=== PATIENT | male | born 1970 | race Hispanic/Latino ===

== ENCOUNTER 2019-03-10 11:30 | Day surgery (SDC) | payer BC ==
[~2019-03-10 11:30] MED LIST: GENTAMICIN ONE; TOBRADEX ONE; VERSED ONE; XYLOCAINE 2%/ EPI 1:200,000 INFILTRATI ONE; XYLOCAINE MPF 1% INFILTRATI ONE
[2019-03-10] MEDS ORDERED: TETRACAINE 0.5% OD SCH (11:51)
[2019-03-10] MEDS: VIGAMOX OD SCH ×3 (12:30→12:40)
[2019-03-10] MEDS ORDERED: SUBLIMAZE ONE (13:12)
[2019-03-10] MEDS ORDERED: VERSED ONE (13:13)
[2019-03-10] MEDS ORDERED: XYLOCAINE MPF 1% INFILTRATI ONE (13:14)
[2019-03-10] MEDS ORDERED: XYLOCAINE 2%/ EPI 1:200,000 INFILTRATI ONE ×2 (13:21)
[2019-03-10] MEDS ORDERED: MIOSTAT OD ONE (13:23)
[2019-03-10] MEDS ORDERED: PRED FORTE 1% OD ONE (13:46)
--- NOTE | 2019-03-10 13:55 | Operative Report ---
Operative Report Operative Report: PATIENT NAME: DATE OF : DATE OF SURGERY: PREOPERATIVE DIAGNOSIS: Bullous keratopathy right eye POSTOPERATIVE DIAGNOSIS:same PROPOSED PROCEDURE: Endothelial keratoplasty keratoplasty, right eye ADDITIONAL PROCEDURE: Superficail keratectomy right eye OPERATIVE PROCEDURE: 1. Endothelial keratoplasty keratoplasty, right eye SURGEON: Sari Hein MD TREASURY REPRESENTATIVE SURGEON: none ANESTHESIA: Monitored anesthesia care in combination with topical and intraca meral anesthesia because of the established specific risk of reflux, arrhythmias, or anxiety attacks associated with ocular manipulation, as well as the difficulty of the assembler surgical garment to manage such potentially catastrophic events while simultaneously attempting to complete the surgical procedure and was deemed necessary for the patient's safety to have an anesthesiologist was present during the procedure whenever possible. The anesthesiologist was utilized to regulate the intravenous sedation of the patient so the patient was cooperative yet not asleep in order for the patient to successfully maintain fixation of the eye on the operating light of the microscope. PUBLICITY MANAGER: COMPLICATIONS: None ALLERGIES: codeine PREOPERATIVE NOTE: The patient is a [male] who has the diagnosis or diagnoses of Fuchs dystrophy. Examination of the posterior portion of the eyes by indirect ophthalmoscopy shows the optic nerve and retina to be normal. 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 Donor tissue will be used to replace the dysfunctional endothelium utilizing a penetrating technique into the anterior chamber. This complicated technique allows the patient to maintain structural integrity of the eye making it much more resistant to traumatic rupture than a standard keratoplasty. It also allows a larger than average surface area of transplanted endothelium which hopefully in the long run will allow for longer endothelial viability and success for the surgery. It also provides for faster visual recovery and less anisometropia than previous keratoplasty techniques. It is technically more difficult because of the complicated preparation of the donor tissue and insertion of the donor tissue into the anterior chamber with fixation of the tissue without direct suturing of the donor. This also provides an increased chance of dislocation of the donor tissue in the immediate postoperative period compared to standard keratoplasty techniques. This type of corneal transplant takes over twice as long as a standard corneal transplant. Moreover, the preparation and end of surgery are more time consuming for both the surgeon and staff: the blocking of the eye requires a longer setup time as noted, the procedure itself is more complex, and the patient needs to lay face up and flat in the recovery area for a specified period of time prior to discharge. Preoperatively, it was discussed with the patient that they could have either a standard corneal transplant or a variation of a penetrating keratoplasty where only the posterior layers of the cornea are transplanted. With this new technique, as with any corneal transplant, there is always the possibility that the surgery may need to be repeated; or, in this case, also repeated with a standard corneal transplant if the visual result is not satisfactory. However, some of the advantages of this current technique are much more rapid visual recovery and a tectonically stronger eye after surgery. PROGNOSIS: guarded because of previous trabeculectomy INDICATIONS FOR SURGERY: The patient is undergoing surgery with the hope of eliminating or improving these visual difficulties. OPERATIVE REPORT: The patient was taken into the preoperative area and evaluated medically and found from a systemic standpoint to be suitable for the planned surgery and anesthesia. The patient was then sedated and monitored by anesthesia. The patient was next taken into the operating room where they were positioned on the operating bed. They were given drops of topical anesthetic in the operative eye. Betadine was used to scrub the periorbital area, eyelids, adjacent cheek and forehead. The prepped area was dried with sterile gauze. The patient was draped, and a wire speculum was placed between the eyelids. The horizontal diameter of the cornea was measured with calipers to assist in determining the proper sizing of the trephination blade to be used for donor incision and for removal of the patients central Descemets membrane. PREPARATION OF DONOR TISSUE: Prior to surgery, the donor tissue was inspected and found to be adequate for the planned procedure. The involved eye bank provided the usual demographic information on the donor including age, cause of , necessary screening and blood work. The results were negative regarding possible transmission of diseases from the donor. Our inspection of the donor tissue showed no gross abnormalities. The patients donor cornea was prepared by the eye bank to separate the anterior and posterior portions of the cornea for the planned surgery. The cornea was inspected prior to surgery and found to be suitable and at the time of surgery was taken out of the storage solution and carefully centered on the cutting block with the centration based on the centration dawn that was made the eye bank on the external surface of the cornea-the stromal side. The donor tissue was removed from the tissue storage container by carefully removing it with forceps taking care not to touch the endothelial surface but only the scleral rim Suction was applied, the centration was rechecked to make sure it was perfectly centered. Once the size of the appropriate trephine was determined, the donor was punched with the trephine. The donor cornea was then covered with tissue storage solution and put aside for use later in the surgical procedure. The horizontal corneal diameter was measured at 12mm and the overall condition of the eye was evaluated to determine which size of trephine would best provide for as large donor button as possible without compromising the angle structures or iris. Once the trephine size was chosen, it was used lightly to dawn the epithelium on the corneal surface to provide a reference for later placement of the donor tissue. This was the same trephine used to punch the donor tissue. A sharp blade was next used to make a stab incision in mid peripheral cornea into the anterior chamber. This was done so that the inner portion would be covered by the donor tissue later in the case. Gentian rich marked the incision as well. This incision was positioned to be used by my right hand. MAin incision was created temporal. A 23-gauge needle hooked up to an infusion of balanced salt solution was inserted through the midperipheral cornea into the anterior chamber. This was used to maintain the anterior chamber. Funnel: The donor tissue was removed from the cutting block and transferred to the operative field. It was placed on the patients cornea so that the endothe lium of the donor was facing up. The tissue storage solution and any blood or other material was allowed to flow off the donor tissue. A small amount of viscoelastic was then placed on the endothelial surface of the donor. Two forceps were then used to grasp an edge of the donor taking care not to actually touch the endothelium and the posterior portion of the donor, which had been previously dissected on the artificial anterior chamber, and the donor gently partially pulled apart about half of the posterior portion from the anterior portion. A Busin Funnel was brought into the operative field and the posterior portion of the donor was pulled onto it. Intraocular forceps were used to pull the tissue into the funnel, essentially making it fold over on itself endothelial side inward. The intraocular forceps were then introduced through a previously made peripheral corneal stab incision in the nasal cornea. The forceps were moved across the anterior chamber to the area of the 5.0 mm incision. The Busin funnel was inserted into the 5.0 mm wound. The forceps grasped the edge of the donor tissue and the tissue was pulled into the eye. Once inside the eye, the forceps released their hold and the funnel was removed. Using a 30-gauge needle, a small stab incision was made in the peripheral cornea and a small amount of air was injected within the folded-over piece of donor tissue in the eye. The air was slowly injected to unfold the donor endothelial side down. Once the donor had unfolded, the anterior chamber was completely filled with air. OTHER SPECIFICS OF THE SURGICAL PROCEDURE: Trephine size: 8.0 mm Horizontal corneal diameter: 12 mm Estimated thickness of donor tissue: 106 micron Time anterior chamber was completely filled with air in the operating room. The patient laid face up and flat in the recovery room with a full air bubble to help with further adherence of the donor cornea to the recipient cornea for the following length of time: 60 minutes DISCHARGE SUMMARY: The patient was released in stable condition. The patient and those with the patient were given a written sheet of postoperative instructions and counseling on any abnormal laboratory studies. The patient is to call immediately for difficulties and will otherwise see us in the morning at the office. The patient was given prescriptions for Tylenol No. 3, Keflex, and TobraDex ointment. Sari Hein M.D. Date cc: Dictated: Worksheets: Transcribed:
--- NOTE | 2019-03-10 13:56 | Short Stay Summary ---
Short Stay Documentation Date of service: 03/10/19 - History H&P: obtained from office - Allergies and Medications Current Medications: Allergies codeine Adverse Reaction (Verified 03/10/19 12:10) Unknown ELEVATED EYE PRESSURE Home Medications Medication Instructions Recorded Confirmed Last Taken Type FLUoxetine HCL [FLUoxetine] 20 mg PO DAILY 03/10/19 03/10/19 03/09/19 21:00 History Fenofibrate 160 mg PO DAILY 03/10/19 03/10/19 03/09/19 09:00 History Gabapentin [Neurontin] 300 mg PO HS 03/10/19 03/10/19 03/09/19 21:00 History Omeprazole 20 mg PO DAILY 03/10/19 03/10/19 03/09/19 09:00 History Sucralfate 1 gram PO QID 03/10/19 03/10/19 03/09/19 20:00 History Active Medications Moxifloxacin HCl (Vigamox) 1 drops OD Q5MIN DEBRA Stop: 03/12/19 11:51 Last Admin: 03/10/19 12:40 Dose: 1 drops Documented by: Prednisolone Acetate (Pred Forte 1%) 1 drops OD ONCE ONE Stop: 03/10/19 13:47 Tetracaine HCl (Tetracaine 0.5%) 1 drops OD ONCE DEBRA Last Admin: 03/10/19 12:30 Dose: 1 drops Documented by: - Brief post op/procedure progress note Date of procedure: 03/10/19 Pre-op diagnosis: bullous keratopathy right eye Post-op diagnosis: same Procedure: DSEAK OD Anesthesia: MAC, local Surgeon: NADIA HERRON Estimated blood loss: none Pathology: none Condition: stable - Disposition Condition at discharge: Good Disposition: DC-01 TO HOME OR SELFCARE - Discharge Diagnoses (1) Bullous keratopathy of right eye Status: Resolved Short Stay Discharge Plan Follow up with: PRIMARY CARE, [Primary Care Provider] - 7 Days
[2019-03-10 14:44] VITALS: BP 124/85
[2019-03-10] MEDS ORDERED: NEOFRIN ONE (15:33)
[2019-03-10] MEDS ORDERED: MYDRIACYL ONE (15:33)
[2019-03-10] MEDS ORDERED: MYDRIACYL OD ONE (15:36)
[2019-03-10] MEDS ORDERED: AK-Dilate OD ONE (15:37)
[2019-03-10] MEDS ORDERED: AK-Dilate ONE (15:39)
== END 2019-03-10 16:00 | disposition home or self-care (01) ==
LOC: OR 11:30
DX: H18.11 Bullous keratopathy, right eye (principal); H40.9 Unspecified glaucoma; K21.9 Gastro-esophageal reflux disease without esophagitis; Z79.899 Other long term (current) drug therapy; Z88.5 Allergy status to narcotic agent
CPT/HCPCS: 65756; 87075; 87116; J2250; J3010; V2785; J1580